=== PATIENT | male | born 1945 | race Caucasian/White ===

== ENCOUNTER → 2022-01-06 10:38 | Outpatient (BNVA) | payer OTHER, SELFPAY | PROVIDERS: PCP Nurse Practitioner; Visit Provider Internal Medicine Cardiovascular Disease | DX: I25.10 Atherosclerotic heart disease of native coronary artery without angina pectoris (principal); I10 Essential (primary) hypertension; E78.5 Hyperlipidemia, unspecified; R94.31 Abnormal electrocardiogram [ECG] [EKG]; Z87.891 Personal history of nicotine dependence | CPT/HCPCS: 93005; 99204 ==

== ENCOUNTER 2022-02-08 10:50 | Outpatient (CLI) | payer OTHER, SELFPAY ==
--- NOTE | 2022-02-08 11:15 | USCV_ITS ---
Buddy Martinez Age: 76 Gender: M : 1945 Exam Date: 02/08/2022 11:04 Ordering Phys: Zhao Lewis MD ([email or web address]) Technologist: FRANCO Exam Location: [facility] Indication: ABNORMAL EKG BP: 164 / 82 HR: 88 Rhythm: Sinus Technical Quality: Adequate MEASUREMENTS (Male / Female) Normal Values 2D ECHO LV Diastolic Diameter PLAX 5.2 cm 4.2 - 5.9 / 3.9 - 5.3 cm LV Systolic Diameter PLAX 3.0 cm IVS Diastolic Thickness 0.9 cm 0.6 - 1.0 / 0.6 - 0.9 cm IVS Systolic Thickness 1.5 cm LVPW Diastolic Thickness 0.9 cm 0.6 - 1.0 / 0.6 - 0.9 cm LVPW Systolic Thickness 1.6 cm LVOT Diameter 2.0 cm LV Ejection Fraction 2D Teich 72.0 % LV Ejection Fraction MOD 2C 64.6 % LV Ejection Fraction 2C AL 65.0 % LA Diameter 3.2 cm LA Width 3.6 cm LA Height 5.6 cm RA Width 3.8 cm RA Height 4.5 cm Aorta at Sinotubular Diameter 1.8 cm IVC Diameter 1.5 cm M-MODE Aortic Annulus Diameter 2.6 cm LA Ao Ratio MM 1.3 MV E Point Septal Separation 0.4 cm DOPPLER AV Peak Velocity 159.7 cm/s LVOT Peak Velocity 106.0 cm/s AV Area Cont Eq vti 2.1 cm squared AV Area Cont Eq pk 2.1 cm squared MV Peak Velocity 121.0 cm/s MV Area PHT 4.5 cm squared Mitral E to A Ratio 1.0 MV E' Velocity 52.5 cm/s Mitral E to MV E' Ratio 8.9 Mitral E to LV E' Lateral Ratio 8.2 Mitral E to LV E' Septal Ratio 10.0 TR Peak Velocity 215.4 cm/s TR Peak Gradient 18.6 mmHg TR Mean Velocity 161.2 cm/s TR Mean Gradient 11.2 mmHg TR Velocity Time Integral 52.4 cm TV Peak E Velocity 56.0 cm/s Right Atrial Pressure 3.0 mmHg Pulmonary Artery Systolic Pressu 21.6 mmHg PV Peak Velocity 99.0 cm/s RV Acceleration Time 0.1 s RV Ejection Time 0.3 s RV AcT/ET 0.4 FINDINGS Left Ventricle Normal left ventricular size and systolic function, EF 61 %. No regional wall motion abnormalities.Grade I/IV diastolic dysfunction (abnormal relaxation filling pattern), normal to mildly elevated filling pressures. Right Ventricle The right ventricle is normal in size and function. Right Atrium The right atrium is normal in size. Left Atrium The left atrium is normal in size. Mitral Valve No gross abnormalities noted Aortic Valve No gross abnormalities noted Tricuspid Valve Trace tricuspid valve regurgitation. Pulmonic Valve No gross abnormalities noted Pericardium Normal pericardium without effusion. Aorta Normal aortic annulus size. IVC Normal IVC dimension with >50% respiratory change of the inferior vena cava. CONCLUSIONS Normal left ventricular size and systolic function, EF 61 %. No regional wall motion abnormalities.Grade I/IV diastolic dysfunction (abnormal relaxation filling pattern), normal to mildly elevated filling pressures. Trace tricuspid valve regurgitation. There is no pericardial effusion. There are no intracardiac masses. No similar previous studies are available for comparison Dr Zhao Lewis MD [facility] (Electronically Signed) Final Date: 08 February 2022 18:42 S
== END 2022-02-08 10:51 | disposition home or self-care (01) ==
LOC: RAD 10:52
PROVIDERS: PCP Nurse Practitioner; Visit Provider Internal Medicine Cardiovascular Disease
DX: R06.00 Dyspnea, unspecified (principal); R94.31 Abnormal electrocardiogram [ECG] [EKG]
CPT/HCPCS: 93306

== ENCOUNTER 2022-11-22 08:06 | Outpatient (CLI) | payer OTHER, MEDICARE, SELFPAY ==
--- NOTE | 2022-11-22 08:23 | US_ITS ---
WS: [id number] RIGHT UPPER QUADRANT ULTRASOUND HISTORY: ELEVATED LIVER ENZYMES COMPARISON: None available. Technically very difficult and limited evaluation of the RIGHT upper quadrant due to body habitus. Liver: 18.5 cm in length. Moderately enlarged liver. Diffuse mild heterogeneity throughout the liver. No discrete mass identified. Portions of the liver are not well visualized due to attenuation. No bi le duct dilatation. Portal Vein: Normal hepatopetal flow with monophasic waveform. Gallbladder: Prior cholecystectomy. CBD: 0.4 cm Pancreas: Not visualized. Completely obscured by bowel gas. Right kidney: 10.3 cm in length. Normal size and echogenicity. No hydronephrosis or mass. Mild cortic al thinning. Aorta and IVC: Unremarkable abdominal aorta and IVC. No ascites. US/US abdomen limited [id number] IMPRESSION: 1. Technically difficult RIGHT upper quadrant ultrasound evaluation. 2. Prior cholecystectomy. 3. Moderate hepatic steatosis and hepatomegaly.
== END 2022-11-22 08:07 | disposition home or self-care (01) ==
LOC: RAD 08:17
PROVIDERS: PCP Nurse Practitioner; Visit Provider Nurse Practitioner
DX: R74.8 Abnormal levels of other serum enzymes (principal); K76.0 Fatty (change of) liver, not elsewhere classified
CPT/HCPCS: 76705

== ENCOUNTER → 2023-03-20 11:30 | Outpatient (BNVA) | payer OTHER, SELFPAY | PROVIDERS: PCP Nurse Practitioner; Visit Provider Internal Medicine Cardiovascular Disease | DX: I10 Essential (primary) hypertension (principal); E78.5 Hyperlipidemia, unspecified; I25.10 Atherosclerotic heart disease of native coronary artery without angina pectoris; Z87.891 Personal history of nicotine dependence | CPT/HCPCS: 99213 ==

== ENCOUNTER → 2024-03-27 13:39 | Outpatient (BNVA) | payer OTHER, BC, SELFPAY | PROVIDERS: PCP Nurse Practitioner; Visit Provider Internal Medicine Cardiovascular Disease | DX: I25.10 Atherosclerotic heart disease of native coronary artery without angina pectoris (principal); I10 Essential (primary) hypertension; E78.5 Hyperlipidemia, unspecified; Z87.891 Personal history of nicotine dependence | CPT/HCPCS: 99213 ==

== ENCOUNTER 2024-12-19 08:58 | Outpatient (CLI) | payer OTHER, SELFPAY ==
--- NOTE | 2024-12-19 09:00 | USR_ITS ---
PROCEDURE INFORMATION: Exam: US Bilateral Noninvasive Physiologic Study of the Lower Extremity Arteries, Limited Exam date and time: 12/19/2024 8:53 AM Age: 79 years old Clinical indication: Condition or disease; Peripheral vascular disease; Additional info: Peripheral vascular dz TECHNIQUE: Imaging protocol: Bilateral Limited bilateral noninvasive physiologic studies of lower extremity arteries. Waveforms were obtained and evaluated. Images were documented and archived. Exam is limited. COMPARISON: We will removal extremity. FINDINGS: Right Ankle-Brachial Index: 0.9 (193/199) Left Ankle-Brachial Index: 1.2 (207/171) US/CV ankle brachial index [id number] IMPRESSION: No evidence of stenosis or occlusion in the lower extremity.
== END 2024-12-19 08:59 | disposition home or self-care (01) ==
LOC: RAD 08:59
PROVIDERS: PCP Nurse Practitioner; Visit Provider Nurse Practitioner
DX: I73.9 Peripheral vascular disease, unspecified (principal)
CPT/HCPCS: 93922

== ENCOUNTER → 2025-03-24 14:43 | Outpatient (BNVA) | payer OTHER, SELFPAY | PROVIDERS: PCP Nurse Practitioner; Visit Provider Internal Medicine Cardiovascular Disease | DX: I25.10 Atherosclerotic heart disease of native coronary artery without angina pectoris (principal); I10 Essential (primary) hypertension; E78.2 Mixed hyperlipidemia; R94.31 Abnormal electrocardiogram [ECG] [EKG]; Z87.891 Personal history of nicotine dependence | CPT/HCPCS: 99214 ==

== ENCOUNTER 2025-06-17 10:49 | Emergency (ER) | payer OTHER, SELFPAY ==
[2025-06-17 10:53] VITALS: BP 157/65; PULSE 61; TEMP 36.4; O2SAT 96; BMI 33.5
--- NOTE | 2025-06-17 10:56 | XR_ITS ---
WS: [id number] Portable AP upright chest, 06/17/2025 Clinical Data: htn Comparison: None Findings: No nodules, masses or effusions are seen. The heart is normal. The pulmonary vascularity is not increased. No pneumonia or pneumothorax is seen. The diaphragms are flattened. XR/XR chest 1V portable [id number] Impression: Hyperinflation.
--- NOTE | 2025-06-17 10:56 | ECG_ITS ---
[facility] Test Date: 2025-06-17 Pat Name: Buddy Martinez Department: Room: Gender: Male [employer]: : 1945 Requested By: Beatriz Carlson Order Number: [id number] Joana MD: Zhao Lewis M.D. Measurements Intervals [place] Rate: 68 P: 68 [place]: 161 QRS: 47 QRSD: 72 T: 46 QT: 355 QTc: 379 Interpretive Statements SINUS RHYTHM WITH FREQUENT VENTRICULAR PREMATURE COMPLEXES IN A BIGEMINAL PATTERN POSSIBLE ANTERIOR MYOCARDIAL INFARCTION , OF INDETERMINATE AGE [30 ms Q WAVE IN V3/V4, OR R < 0.2 mV IN V4] No previous ECG available for comparison Electronically Signed On 06-17-2025 21:53:52 [employer]ORCH [employer] by Zhao Lewis M.D. [email or web address]
--- OUTSIDE RECORDS SUMMARY | 2025-06-17 11:19 | XMS_ITS | Encounter Summary ---
Author Organization [facility] Address [address] [place] [address] Care Team Providers Care Locker Room Supervisor Name Role Phone Mark Rivera MD Primary Care Provider [phone] Reason for Visit * Reason Comments Information Encounter Details Date Type Department Care Team (Late st Contact Info) Description 07/17/2024 Telephone [facility] [address] [place] [address] Libia Le, GITA [address] [place] [address] Information Social History Tobacco Use Types Packs/Day Years Used Date Smoking Tobacco: Former Cigarettes Q uit: 1998 Smokeless Tobacco: Never Alcohol Use Standard Drinks/Week Comments Not Currently 0 (1 standard drink = 0.6 oz pur e alcohol) Feeling Safe Answer Date Recorded Are you in a relationship wi th someone who hurts you emotionally and/or physically? No 04/13/2023 Food Insecurity Answer Date Recorded Social/Environmental Concerns No concerns Transportation Needs Answer Date Record ed Social/Environmental Concerns No concerns Housing Stability Answer Date Recorded Social/Environmental Concerns No concerns Utility Needs Answer Date Recorded Social/Environmental Concerns No concerns Sex and Gender Information Value Date Recorded Sex Assigned at Male 05/31/2024 9:03 AM CDT Legal Sex Male 4:44 PM CDT Gender Identity Male 05/31/2024 9:03 AM CDT Sexual Orientation Straight 05/31/2024 9: 03 AM CDT documented as of this encounter Miscellaneous Notes * Telephone Encounter - Arabella Washington - 07/17/2024 4:03 PM CST Copied from [facility] #[id number]. Topic: Patient or Caregiver Communication Request >> Jul 17, 2024 4:00 PM Arabella Burgess wrote: Patient or Caregiver requesting that a message be sent to Care Team Caller: Buddy Martinez Patient/Caregiver Callback Number: [phone] (home) Call Notes: Wanting to let clinic know that [facility] made him an appointment for 09/02/24. Patient just wanting Libia to be aware [facility] documented in this encounter Plan of Treatment Not on file documented as of this encounter Visit Diagnoses Not on filedocumented in this encounter Care Teams Locker Room Supervisor Relationship Specialty Start Date End Date Mark Rivera MD [address] [facility] [address] [place] [address] PCP - General Family Practice 04/08/23 documented as of this encounter
--- OUTSIDE RECORDS SUMMARY | 2025-06-17 11:19 | XMS_ITS | Clinical Summary ---
Author Organization [facility] Address [address] [address] Phone Care Team Providers Care Ski Base Trimmer Name Role Phone Mark Rivera MD Primary Care Provider [phone] Allergies Active Allergy Reactions Criticality Noted Date Comments Hymenoptera Allergenic Extract Anaphylaxis High 11/12 Levofloxacin Hives High 04/08/2023 Lovastatin Nausea and Vomiting Low 11/04/2021 Penicillins Anaphylaxis High 11/22/2021 Simvastatin Swelling Low 11/04/2021 Medications finasteride 5 mg tablet Take 5 mg by mouth daily. Active EPINEPHrine 0.1 mg/mL injection syringe Inject 1 mg by intravenous injection one time only. Active multivitamin oral liquid Take 5 mL by mouth daily. Active OMEGA-3 FATTY ACIDS-FISH OIL ORAL Take 1 Tablet by mouth 2 times daily. Active homeopathic drugs (SAMBUCUS ORAL) Take 1 Caplet by mouth daily. Active vitamin B complex (B COMPLEX-VITAMIN B12 ORAL) Take 1 Tablet by mouth daily. Active CALCIUM CARBONATE-VITAMI N D3 ORAL Take 1 Tablet by mouth every other day. Active ZINC ORAL Take 1 Tablet by mouth every other day. Active ascorbic acid (VITAMIN C ORAL) Take 1 Tablet by mouth every other day. Active L. acidophilus/L. rhamnosus (PROBIOTIC ORAL) Take 1 Caplet by mouth daily. Active losartan (COZAAR) 100 mg tablet Take 100 mg by mouth daily. 3 Active metoprolol succinate (TOPROL XL) 25 mg Extended Release 24 hour tablet Take 25 mg by mouth daily. Active hydrocortisone-i odoquinoL 1-1 % Cream in PacketIndication s:Pruritus Apply 1 Application to affected area daily. 30 Gram 2 3 Active pantoprazole (PROTONIX) 20 mg Tablet, Delayed Release (E.C.) Take 20 mg by mouth daily. Active amLODIPine (NORVASC) 5 mg tabletIndication s:Essential (primary) hypertension Take 1 Tablet (5 mg) by mouth daily. 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 Elevated liver enzymes 04/16/2023 Elevated LFTs 04/14/2023 Intrahepatic bile duct dilation 04/14/2023 History of cholecystectomy 04/14/2023 Jaundice, hepatocellular 04/14/2023 Claustrophobia 04/13/2023 Scleral icterus 04/13/2023 Hyperbilirubinemia 04/13/2023 Transaminitis 04/08/2023 Abdominal distension (gaseous) 04/08/2023 RUQ abdominal pain 04/08/2023 BENITO (acute kidney injury) 04/08/2023 Catheter-associated urinary tract infection 03/15 Atherosclerosis of mcgr[place] co ronary artery of m[place]grath heart without angina pectoris 12/01/2022 Overview (12/01/2022): Apr 09, 2019 Entered By: ANDRES JARAMILLO Comment: Hx Cath ~1991/no procedures/No ID Gastroesophageal reflux disease 12/01/2022 Hyperlipidemia 12/01/2022 Essential (primary) hypertension 12/01/2022 Benign prostatic hyperplasia without lower urinary tract symptoms 12/01/2022 Neurogenic bladder 12/01/2022 Overview (12/01/2022): Apr 09, 2019 Entered By: ANDRES JARAMILLO Comment: Hx of Retention of urine 12/01/2022 Steatosis of liver 12/01/2022 Overview (12/01/2022): Apr 09, 2019 Entered By: ANDRES JARAMILLO Comment: Per ct scan 05/12/15 Self-catheterizes urinary bladder 12/01/2022 Personal history of DVT (deep vein thrombosis) 0 12/01/2022 Immunizations Immunization Administration Dates Next Due (ADACEL/BOOSTRIX)(10 YR UP) TDAP VACCINE, 0.5ML, IM 09/14/2006 (PNEUMOVAX 23)(50 YRS UP) PN EUMOCOCCAL POLYSACCHARIDE (PPV23) 0.5 ML, IM 01/20/2014 (PREVNAR 13)(6 WKS UP) PNEUM OCOCCAL CONJUGATE (PCV13) 0.5 ML, IM 11/12/2016,01/18/2016 Influenza Seasonal Unspecifi ed Formulation IM 05/14/2019 Influenza Vaccine High Dose 65+ Yrs IM 9,05/31/2018,08/21/2017 Influenza, Unspecified Formulation 07/20,06/18/2015,08/05/2014,09/06,05/11/2012,06/07/2011,06/17/2010 ,06/23/2009,04/14/2009,06/11/2008,02/2007,06/15/2006,2005, 3 Pneumococcal vaccine, unspec ified formulation 2005 Td Vaccine >7 YO IM VFC 2016 Td(adult) Unspecified Formulation 09/14/2006 Social History Tobacco Use Types Packs/Day Years Used Date Smoking Tobacco: Former Cigarettes Q uit: 1997 Smokeless Tobacco: Never Tobacco Cessation:Counseling Given: No Alcohol Use Standard Drinks/Week Comments Not Currently [...] Orientation Straight 05/31/2024 9: 03 AM CDT Last Filed Vital Signs Vital Sign Reading Time Taken Comments Blood Pressure 138/64 11/29/2024 8:14 AM CDT Pulse 71 11/29/2024 8:08 AM CDT Temperature 36.2 C (97.1 F) 11/29/2024 8:08 AM CDT Respiratory Rate 18 11/29/2024 8:08 AM CDT Oxygen Saturation 97% 11/29/2024 8:08 AM CDT Inhaled Oxygen Concentration - - Weight 106.1 kg (234 lb) 11/29/2024 8:08 AM CDT Height 174 cm (5' 8.5 ) 11/29/2024 8:08 AM CDT Body Mass Index 35.06 11/29/2024 8:08 AM CDT Plan of Treatment Health Maintenance Due Date Last Done Comments DIABETES ANNUAL RETINAL EXAM 1963 ZOSTER VACCINE (1 of 2) 1997 RSV VACCINE (60+ or ) (1 - 1-dose 75+ series) 2022 DIABETES ANNUAL FOOT EXAM 02/10/2024 02/09/2023 [place] Preventative Visit/Annual Wellness Visit 08/14/2024 05/14/2024, 02/12/2024, 02/09/2023 INFLUENZA VACCINE (#1) 2025 9, 05/14/2019, 05/31/2018, Additional history exists DIABETES HBA1C Q 6 MONTHS 05/14/20252024, 05/14/2024, 12/11/2023 DIABETES MICROALBUMIN ANNUAL SCREEN 11/12/2025 11/12/2024, 05/14/2024, 12/18/2023 DIABETES: A1C (Auto Order) 11/12/202511/12, 05/14/2024, 12/11/2023 LDL CHOLESTEROL ANNUAL 11/12/2025 , 05/14/2024, 12/11/2023 DTAP/TDAP/TD VACCINES (4 - T d or Tdap) 2026 2016, 09/14/2006, 09/14/2006 PNEUMOCOCCAL VACCINE 50+ YEARS Completed 0 11/12/2016, 01/18/2016, 01/20/2014, Additional history exists Colorectal Cancer Screening Discontinued FIT-DNA Q 3 years Discontinued 05/15/2023 [facility] uACR (Auto Order) Completed 11/12/2024 , 05/14/2024, 12/18/2023 [facility] eGFR (Auto Order) Completed 11/29/2024 , 11/12/2024, 05/14/2024, Additional history exists COLORECTAL SCREENING Discontinued FIT/FOBT Q 1 year Discontinued Flex Sig/CT Colonography Q 5 years Discontinued Procedures Procedure Name Priority Date/Time Associated Diagnosis Comments COMPREHENSIVE METABOLIC PANEL Routine 11/29/2024 8:35 AM CDT Urinary pain Urinary tract infection without hematuria, site unspecified MICROALBUMIN/CREATINI NE RATIO, RANDOM UR Routine 11/12/2024 9:28 AM CDT Essential (primary) hypertension LIPID PANEL Routine 11/12/2024 9:28 AM CDT Essential (primary) hypertension HEMOGLOBIN A1C Routine 11/12/2024 9:28 AM CDT Type 2 diabetes mellitus with other circulatory complication, without long-term current use of insulin ([facility]) COLON CANCER SCREEN, STOOL DNA Routine 05/15/2023 3:30 PM CDT Encounter for routine adult health examination without abnormal findings from Last 3 Months or Most Recently Relevant to Health Maintenance Results * (ABNORMAL) COMPREHENSIVE METABOLIC PANEL (11/29/2024 8:35 AM CDT) GLUCOSE 199(H) 65 - 99 mg/dL [facility] Comment: Fasting reference interval For someone without known diabetes, a glucose value >125 mg/dL indicates that they may have diabetes and this should be confirmed with a follow-up test. BUN 20 7 - 25 mg/dL [facility] CREATININE 1.18 0.70 - 1.28 mg/dL [facility] EGFR 64 > OR = 60 mL/min/1. 73m2 [facility] BUN/CREAT RATIO SEE NOTE: 6 - 22 (calc) [facility] Comment: Not Reported: BUN and Creatinine are within reference range. SODIUM 133(L) 135 - 146 mmol/L [facility] POTASSIUM 5.1 3.5 - 5.3 mmol/L [facility] CHLORIDE 97(L) 98 - 110 mmol/L [facility] CO2 31 20 - 32 mmol/L [facility] CALCIUM 9.4 8.6 - 10.3 mg/dL [facility] TOTAL PROTEIN 6.8 6.1 - 8.1 g/dL [facility] ALBUMIN 4.3 3.6 - 5.1 g/dL [facility] GLOBULIN 2.5 1.9 - 3.7 g/dL (calc) [facility] ALBUMIN/GLOBULIN RATIO 1.7 1.0 - 2.5 (calc) [facility] BILIRUBIN TOTAL 0.5 0.2 - 1.2 mg/dL [facility] ALKALINE PHOSPHATASE 60 35 - 144 U/L [facility] AST 32 10 - 35 U/L [facility] ALT 35 9 - 46 U/L [facility] Comment: Test Performed at: [facility] [address] [place] [address] Donte Hernández MD Blood 11/29/2024 8:35 AM CDT 11/30/2024 4:12 AM CDT us Libia Le MEDICAL TRANSCRIBER CHEMISTRY ORDERABLES Final Res ult [facility] [phone] [facility] [address] [place] [address] * MICROALBUMIN/CREATININE RATIO, RANDOM UR (11/12/2024 9:28 AM CDT) Creatinine, Urine 99 20 - 320 mg/dL [facility] MICROALBUMIN, URINE 0.2 See Note: mg/dL [facility] Comment: Reference Range: Reference Range Not established MICROALBUMIN/CREAT RATIO, UR 2 <30 mg/g creat [facility] Comment: The ADA defines abnormalities in albumin excretion as follows: Albuminuria Category Result (mg/g creatinine) Normal to Mildly increased <30 Moderately increased 30-299 Severely increased > OR = 300 The ADA recommends that at least two of three specimens collected within a 3-6 month period be abnormal before considering a patient to be within a diagnostic category. Test Performed at: [facility] [address] [facility] [place] [address] Donte Hernández MD Urine URINE SPECIMEN OBTAINED BY CLEAN CATCH PROCEDURE / Unknown 11/12/2024 9:28 AM CDT 11/13/2024 5:06 AM CDT us Libia [place] MEDICAL TRANSCRIBER URINE ORDERABLES Final Result [facility] [phone] [facility] [address] [place] [id number] * (ABNORMAL) HEMOGLOBIN A1C (11/12/2024 9:28 AM CDT) HEMOGLOBIN A1C 6.8(H) <5.7 % of total Hgb [facility] Comment: For someone without known diabetes, a hemoglobin A1c value of 6.5% or greater indicates that they may have diabetes and this should be confirmed with a follow-up test. For someone with known diabetes, a value <7% indicates that their diabetes is well controlled and a value greater than or equal to 7% indicates suboptimal control. A1c targets should be individualized based on duration of diabetes, age, comorbid conditions, and other considerations. Currently, no consensus exists regarding use of hemoglobin A1c for diagnosis of diabetes for children. ESTIMATED AVERAGE GLUCOSE (MG/DL) 148 mg/dL [facility] ESTIMATED AVERAGE GLUCOSE (MMOL/L) 8.2 mmol/L [facility] Comment: Test Performed at: [facility] [id number] [facility] [place] [address] Donte Hernández MD Blood 11/12/2024 9:28 AM CDT 11/13/2024 4:21 AM CDT us Libia [place] MEDICAL TRANSCRIBER CHEMISTRY ORDERABLES Final Res ult Performing Organization Address City/[facility]/ZIP Co de Phone Number [facility] [phone] [facility] [address] [address] [place] [address] * (ABNORMAL) LIPID PANEL (11/12/2024 9:28 AM CDT) CHOLESTEROL 175 <200 mg/dL [facility] HDL 46 > OR = 40 mg/dL [facility] TRIGLYCERIDE 239(H) <150 mg/dL [facility] Comment: If a non-fasting specimen was collected, consider repeat triglyceride testing on a fasting specimen if clinically indicated. Levi et al. J. of Clin. Lipidol. 2015;9:129-169. LDL CALCULATED 96 mg/dL (calc) [facility] Comment: Reference range: <100 Desirable range <100 mg/dL for primary prevention; <70 mg/dL for patients with CHD or diabetic patients with > or = 2 CHD risk factors. LDL-C is now calculated using the Saleem-Malin calculation, which is a validated novel method providing better accuracy than the Friedewald equation in the estimation of LDL-C. Saleem SS et al. RADHA. 2013;310(19): 2516-8336 (http://education.OwnerListens/faq/SXR164) CHOL/HDL RATIO 3.8 <5.0 (calc) [facility] NON-HDL CHOLESTEROL 129 <130 mg/dL (calc) [facility] Comment: For patients with diabetes plus 1 major ASCVD risk factor, treating to a non-HDL-C goal of <100 mg/dL (LDL-C of <70 mg/dL) is considered a therapeutic option. Test Performed at: [facility] [address] [place] [address] Donte Hernández MD Blood 11/12/2024 9:28 AM CDT 11/13/2024 4:21 AM CDT us Libia Le NP CHEMISTRY ORDERABLES Final Res ult [facility] [phone] [facility] [address] [place] [address] * COLON CANCER SCREEN, STOOL DNA (05/15/2023 3:30 PM CDT) COLOGUARD RESULT Negative Negative [facility] Comment: NEGATIVE TEST RESULT. A negative Cologuard result indicates a low likelihood that a colorectal cancer (CRC) or advanced adenoma (adenomatous polyps with more advanced pre-malignant features) is present. The chance that a person with a negative Cologuard test has a colorectal cancer is less than 1 in 1500 (negative predictive value >99.9%) or has an advanced adenoma is less than 5.3% (negative predictive value 94.7%). These data are based on a prospective cross-sectional study of 10,000 individuals at average risk for colorectal cancer who were screened with both Cologuard and colonoscopy. (Evie Sage et al, N Engl J Med 2014;370(14):4072-8096) The normal value (reference range) for this assay is negative. COLOGUARD RE-SCREENING RECOMMENDATION: Periodic colorectal cancer screening is an important part of preventive healthcare for asymptomatic individuals at average risk for colorectal cancer. Following a negative Cologuard result, the [place] Cancer Society and U.S. Multi-Society Task Force screening guidelines recommend a Cologuard re-screening interval of 3 years. References: [place] [employer] Society Guideline for Colorectal Cancer Screening: https://www.cancer.org/cancer/trrdm-idvgyl-tvfrue/ezxbksbba-soswnqdkt-kwupvpd/ac s-rec ommendations.html.; Bryce DK, Deshawn CR, Kathy CarranzaK, Colorectal Cancer Screening: Recommendations for Physicians and Patients from the U.S. Multi-Society Task Force on Colorectal Cancer Screening , Am J Gastroenterology 2017; 112:6331-1942. TEST DESCRIPTION: Composite algorithmic analysis of stool DNA-biomarkers with hemoglobin immunoassay. Quantitative values of individual biomarkers are not reportable and are not associated with individual biomarker result reference ranges. Cologuard is intended for colorectal cancer screening of adults of either sex, 45 years or older, who are at average-risk for colorectal cancer (CRC). Cologuard has been approved for use by the U.S. FDA. The performance of Cologuard was established in a cross sectional study of average-risk adults aged 50-84. Cologuard performance in patients ages 45 to 49 years was estimated by sub-group analysis of near-age groups. Colonoscopies performed for a positive result may find as the most clinically significant lesion: colorectal cancer [4.0%], advanced adenoma (including sessile serrated polyps greater than or equal to 1cm diameter) [20%] or non- advanced adenoma [31%]; or no colorectal neoplasia [45%]. These estimates are derived from a prospective cross-sectional screening study of 10,000 individuals at average risk for colorectal cancer who were screened with both Cologuard and colonoscopy. (Evie Diego. et al, N Engl J Med 2014;370(14):8270-6399.) Cologuard may produce a false negative or false positive result (no colorectal cancer or precancerous polyp present at colonoscopy follow up). A negative Cologuard test result does not guarantee the absence of CRC or advanced adenoma (pre-cancer). The current Cologuard screening interval is every 3 years. ([place] Cancer Society and U.S. Multi-Society Task Force). Cologuard performance data in a 10,000 patient pivotal study using colonoscopy as the reference method can be accessed at the following location: www.Zazzle/results. Additional description of the Cologuard test process, warnings and precautions can be found at www.cologuard.com. Stool STOOL SPECIMEN / Unknown 05/15/2023 3:30 PM CDT 05/17/2023 4:01 AM CDT us Zaina Lambert BALL MILL OPERATOR BODY FLUIDS AND STOOLS Christine fong Result [facility] CLIA # [id number] [address], [address] [place] [address] from Last 3 Months or Most Recently Relevant to Health Maintenance Insurance MEDICAID [facility] MEDICARE HMO [place] [employer] Advance Directives For more information, please contact: [phone] * NO CPR (In Event of Cardiopulmonary Arrest) (Latest Code Status on File) Date Activated Date Inactivated Comments 04/13/2023 8:12 PM 04/16/2023 4:22 PM Question Answer Comments Mechanical Ventilation (for respiratory distress) - Invasive (i.e. intubation): No Mechanical Ventilation (for respiratory distress) - Non-Invasive (i.e. BiPAP, CPAP): No * Default Full Code - Needs Discussion Date Activated Date Inactivated Comments 04/13/2023 7:13 PM 04/13/2023 8:11 PM Care Teams Ski Base Trimmer Relationship Specialty Start Date End Date Mark Rivera MD [address] [address] PCP - General Family Practice 04/08/23
--- OUTSIDE RECORDS SUMMARY | 2025-06-17 11:19 | XMS_ITS | Patient Health Record ---
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 Name Role Phone Trevor Velásquez [phone] Allergies Allergen (clinical drug ingredient) Drug/Non Drug Allergy documented on EMR Reaction Allergy Type Onset Date Status atorvastatin Atorvastatin Unknown Drug Allergy A ctive doxycycline Doxycycline Unknown Drug Allergy Act augustus Penicillin Unknown Drug Allergy Active Reason For Referral No Information Medications Medication SIG (Take, Route, Fr equency, Duration) Notes Start Date End Date Status [place] 3 Active Ascorbic Acid Active Polyethylene Glycol Active Finasteride Active Multivitamin Active B Complex (Folic Acid) Active Losartan Potassium A ctive Docusate Sodium Acti ve Metoprolol Succinate Active Senna Active oxyCODONE HCl Active Pantoprazole Sodium Active Cholecalciferol Acti ve Social History Tobacco Use: Social History Observation Description Date Details (start date - stop date) Never Smoker NA - NA Sex Assigned At : Social History Observation Description Sex Assigned At Male Social History Drugs: Social Info Question Answer Notes Drugs: Current or past use of IV or Recreational Drugs: Former Alcohol: Social Info Question Answer Notes Alcohol Current or past use of alcohol: Former Tobacco Use: Social Info Question Answer Notes Tobacco Control (Standard) Tobacco use: Nonsmoker . Are you a: former smoker Problems Problem Type SNOMED Code ICD Code Onset Dates Problem Status W/U Status Risk Notes Problem Gastroesophageal reflux disease (disorder) (584617513) Chronic GERD (K21.9) Active confirmed Plan Of Treatment No Information Insurance Providers Payer Name Payer Address Payer Phone Subscriber Number Group Number Insured Name Patient Relationship to Insured Coverage Start Date Coverage End Date [employer] [facility] PPO [id number] [address] [address] [place], [place] [id number] STEPHEN MAN Self - patient is the insured 3 [facility] [id number] [address] [address] [place] [address] [id number] STEPHEN MAN Self - patient is the insured 4 Medical (General) History Medical History History ICD Code Gerd Hyperlipidemia HTN pancreatitis Surgical History Surgery Date(Month/Year) Inguinal hernia repairs x 3 Colonoscopy ERCP Cholecystectomy
--- NOTE | 2025-06-17 11:24 | W.ED.GENADLT ---
HPI - General Adult General: Chief complaint: General Medical Stated complaint: High bp Time Seen by Provider: 06/17/25 11:14 History of Present Illness: 79-year-old man with a history of hypertension, hyperlipidemia and coronary artery disease who presents emergency room with hypertension. He says his blood pressure has been quite erratic lately. He says he was taken off of carvedilol recently. He follows with Dr. Lewis in cardiology clinic. Most recent visit was March of this year. He does not have any specific complaints but says he checked his blood pressure and it was elevated. He is extremely anxious and will not stay in her room and says he is very claustrophobic. I do talk him into sitting in the waiting room long enough for me to evaluate his lab work and chest x-ray and EKG. He cannot tell me any specific complaints. No palpitations. No chest pain. No headache. No altered mental status. Related Data Home Medications ?Medication ?Instructions ?Recorded ?Confirmed carboxymethylcellulose sodium 1 % 1 drp ophthalmic (eye) BID 12/29/21 03/27/24 eye drops (Artificial Tears (carboxymethylcellulose)) cyanocobalamin (vitamin B-12) 1,000 mcg PO DAILY 12/29/21 03/27/24 1,000 mcg capsule finasteride 5 mg tablet 5 mg PO DAILY 12/29/21 03/27/24 multivitamin 1 tab PO DAILY 12/29/21 03/27/24 omega 4-dhp-mmu-fish oil 1,000 mg 1 cap PO DAILY 12/29/21 03/27/24 (120 mg-180 mg) capsule (Fish Oil) vitamin B complex 1 cap PO DAILY 12/29/21 03/27/24 pantoprazole 40 mg tablet,delayed 40 mg PO DAILY 03/27/24 03/27/24 release amlodipine 5 mg tablet 5 mg PO DAILY 03/24/25 Previous Rx's ?Medication ?Instructions ?Recorded losartan 100 mg tablet 100 mg PO DAILY 30 days #30 tabs 01/06/22 carvedilol 25 mg tablet 25 mg PO BID 90 days #180 tabs 03/24/25 carvedilol 12.5 mg tablet 12.5 mg PO BID #180 tabs 06/17/25 Allergies Allergy/AdvReac Type Severity Reaction Status Date / Time bee venom protein (honey bee) Allergy Unknown Verified 06/17/25 11:01 levofloxacin (From Levaquin) Allergy Unknown Verified 06/17/25 11:01 lovastatin Allergy Unknown Verified 06/17/25 11:01 Penicillins Allergy Unknown Verified 06/17/25 11:01 simvastatin Allergy Unknown Verified 06/17/25 11:01 Review of Systems Narrative: Constitutional symptoms: Negative except as documented in HPI. Skin symptoms: Negative except as documented in HPI. Eye symptoms: Negative except as documented in HPI. ENMT symptoms: Negative except as documented in HPI. Respiratory symptoms: Negative except as documented in HPI. Cardiovascular symptoms: Negative except as documented in HPI. Gastrointestinal symptoms: Negative except as documented in HPI. Genitourinary symptoms: Negative except as documented in HPI. Musculoskeletal symptoms: Negative except as documented in HPI. Neurologic symptoms: Negative except as documented in HPI. Psychiatric symptoms: Negative except as documented in HPI. Endocrine symptoms: Negative except as documented in HPI. PFSH ED PFSH: Medical History (Updated 06/17/25 @ 12:26 by Beatriz Roman MD) Tinnitus Fatty liver BPH (benign prostatic hyperplasia) Obesity Claustrophobia GERD (gastroesophageal reflux disease) Venous thromboembolism Neurogenic bladder Diabetes CAD (coronary artery disease) Peripheral venous insufficiency Former smoker Tricuspid regurgitation Atherosclerosis of coronary artery of [place] heart without angina pectoris, unspecified vessel or lesion type Mixed hyperlipidemia Essential hypertension Surgical History Hx of cholecystectomy Hx of inguinal hernia repair bilat Family History Mother CAD (coronary artery disease), Onset Age: 30 PPM, hx of rhuematic fever Stroke Brain aneurysm Brother CAD (coronary artery disease), Onset Age: 49 stents, MS Lung disease hystoplasmosis Father Cancer Chronic kidney disease (CKD) Family/Other Dementia Denies family history of Diabetes Clotting disorder Suicide Anesthesia complication Bleeding disorder Social History Smoking and tobacco/nicotine status: former use of tobacco/nicotine Alcohol intake: never Substance/Drug Use: never Physical Exam Narrative: EXAM NARRATIVE: General: Alert, no acute distress. Skin: Warm, dry. Head: Normocephalic, atraumatic. Neck: Supple, trachea midline. Eye: Extraocular movements are intact. Ears, nose, mouth and throat: mucosa moist. Cardiovascular: Regular, Normal peripheral perfusion. Respiratory: Lungs are clear to auscultation, respirations are non-labored, breath sounds are equal, Symmetrical chest wall expansion. Gastrointestinal: Soft, Nontender, Non distended Musculoskeletal: Normal ROM, no deformity. Neurological: Alert and oriented, No focal neurological deficit observed. Psychiatric: Cooperative, patient is extremely anxious Course Vital Signs: Vital signs: Vital Signs Temperature 97.6 F 06/17/25 10:53 Pulse Rate 61 06/17/25 10:53 Blood Pressure 157/65 06/17/25 10:53 Pulse Oximetry 96 06/17/25 10:53 Oxygen Delivery Me thod Room Air 06/17/25 10:53 MDM - General Adult Medical Decision Making Medical decision making: Patient's reason for coming to the emergency room hypertension Social determinants: Retired. I reviewed the patient's medical record. 79-year-old man with a history of hypertension, hyperlipidemia and coronary artery disease . Patient had no complaints at his last visit in March to cardiology. I reviewed the patient's current home meds Patient has amlodipine, carvedilol and losartan listed in his med list. He says he is not taking carvedilol currently. Alternate historians: A family member is present and does provide some history as well Differential diagnosis for patient with chest pain includes but is not limited to and based on the above HPI, review of systems and physical exam: Pneumonia. unstable angina. angina. Acute coronary syndrome / MS. Pulmonary embolism. Costochondritis / musculoskeletal. Pleurisy. Pericarditis. Esophageal spasm. Pancreatitis. Cholecystitis. Orders placed to evaluate differential diagnosis based on the above differential, HPI and physical exam EKG: Time 11:04 AM. Rate 68. Normal sinus rhythm, No ST-T changes, bigeminy/PVCs, normal MN & QRS intervals, This was reviewed and interpreted by myself the ER physician at 11:08 AM Chest x-ray: No acute process. No infiltrate. No pneumothorax. This was reviewed and interpreted by myself the emergency room physician. I also reviewed the radiology report. Lab Review: Laboratory results were reviewed and interpreted by myself the emergency room physician. No leukocytosis. No anemia. No renal failure. Troponin is negative. proBNP is mildly elevated at 587. Assessment of risk: Level of risk: Moderate Hospitalization considerations: Hospitalization would be considered but patient absolutely would not come in with his claustrophobia issues. Reexamination: Patient remained stable. No increased work of breathing. No altered mental status. No focal motor deficits. Consultation: I spoke with Dr. 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 He recommends a lower dose of carvedilol 12.5 twice daily. And prompt follow-up in clinic. Assessment and plan: Hypertension Bigeminy - Discharged home - Discussed plan with patient. Answered any questions. - Evaluation and treatment of this problem were appropriate in the emergency setting. Lab Data 06/17/25 11:17 06/17/25 11:17 Radiology Impressions Chest X-Ray 06/17/25 10:56 Impression: Hyperinflation. Laboratory Results WBC 9.03 10^3/uL (3.29-11.43) 06/17/25 11:17 RBC 5.59 10^6/uL (3.85-5.65) 06/17/25 11:17 Hgb 15.40 g/dL (11.27-16.99) 06/17/25 11:17 Hct 48.4 % (37-53) 06/17/25 11:17 MCV 86.6 fl (82-101) 06/17/25 11:17 MCH 27.5 pg (27-33) 06/17/25 11:17 MCHC 31.8 g/dL (30-55) 06/17/25 11:17 RDW 12.2 % (12.1-15.1) 06/17/25 11:17 Plt Count 246 10^3/cmm (157-399) 06/17/25 11:17 MPV 11.0 fL (7.4-10.4) H 06/17/25 11:17 Neut % (Auto) 57.6 % 06/17/25 11:17 Lymph % (Auto) 28.2 % 06/17/25 11:17 [place] % (Auto) 12.3 % 06/17/25 11:17 Eos % (Auto) 1.4 % 06/17/25 11:17 Baso % (Auto) 0.4 % 06/17/25 11:17 Neut # (Auto) 5.19 10^3/uL (1.8-7.7) 06/17/25 11:17 Lymph # (Auto) 2.6 10^3/uL (0.8-4.8) 06/17/25 11:17 [place] # (Auto) 1.1 10^3/uL (0.2-0.9) H 06/17/25 11:17 Eos # (Auto) 0.1 10^3/uL (0.0-0.8) 06/17/25 11:17 Baso # (Auto) 0.0 10^3/uL (0.0-0.1) 06/17/25 11:17 Nucleated RBC % (auto) 0 % 06/17/25 11:17 Nucleated RBCs # 0.0 /100WBC 06/17/25 11:17 Sodium 137 mmol/L (136-145) 06/17/25 11:17 Potassium 4.7 mmol/L (3.5-5.1) 06/17/25 11:17 Chloride 100 mmol/L (98-107) 06/17/25 11:17 Carbon Dioxide 28 mmol/L (22-29) 06/17/25 11:17 Anion Gap 13.7 (5-19) 06/17/25 11:17 BUN 16 mg/dL (8-23) 06/17/25 11:17 Creatinine 0.8 mg/dL (0.7-1.2) 06/17/25 11:17 GFR Calculation Not Reportable 06/17/25 11:17 Glucose 134 mg/dL (65-115) H 06/17/25 11:17 Calculated Osmolality 287 mOsm/kg (285-295) 06/17/25 11:17 Calcium 9.9 mg/dL (8.5-10.5) 06/17/25 11:17 Total Bilirubin 0.7 mg/dL (0.15-1.2) 06/17/25 11:17 AST 23 U/L (0-40) 06/17/25 11:17 ALT 20 U/L (0-41) 06/17/25 11:17 Alkaline Phosphatase 77 U/L (40-130) 06/17/25 11:17 Troponin T Baseline 13 ng/L (0-15) 06/17/25 11:17 NT-Pro-B Natriuret Pep 587 pg/mL (0-450) H 06/17/25 11:17 Total Protein 7.4 g/dL (6.6-8.7) 06/17/25 11:17 Albumin 4.7 g/dL (3.5-5.2) 06/17/25 11:17 Globulin 2.7 g/dL (1.3-4.6) 06/17/25 11:17 All radiology interpretation(s) finalized by discharge Discharge Plan Discharge Patient Disposition: Home Clinical Impression: Essential hypertension, Bigeminy Condition: Stable Prescriptions: New carvedilol 12.5 mg tablet 12.5 mg PO BID Qty: 180 1RF Rx Instructions: must administer with a meal/food No Action pantoprazole 40 mg tablet,delayed release (DR/EC) 40 mg PO DAILY amlodipine 5 mg tablet 5 mg PO DAILY carvedilol 25 mg tablet 25 mg PO BID 90 Days Qty: 180 3RF Rx Instructions: must administer with a meal/food Artificial Tears (cmc) 1 % drops 1 drp ophthalmic (eye) BID cyanocobalamin (vitamin B-12) 1,000 mcg capsule 1,000 mcg PO DAILY finasteride 5 mg tablet 5 mg PO DAILY omega 5-vsp-htf-fish oil [Fish Oil] 1,000 mg (120 mg-180 mg) capsule 1 cap PO DAILY multivitamin Tablet 1 tab PO DAILY vitamin B complex Capsule 1 cap PO DAILY losartan 100 mg tablet 100 mg PO DAILY 30 Days Qty: 30 5RF Discharge Orders: Discharge ED (Routine); Ordered 06/17/25 Ordered By: Beatriz Roman Referrals: Chaya Pressley FNP [Primary Care Provider, Nurse Practitioner] Discharge Diet: Usual diet Discharge Activity: Increase activity as tolerated Patient Instructions: Opioid Safety, Pain Management, Patient Portal & Adriana Instructions Activity Restrictions/Additional Instructions: Please start carvedilol at the lower dose that I prescribed for you today. Please call Dr. Lewis's office for follow-up JODEE. I spoke with him today. Thank you for choosing [facility] for your healthcare needs today. You have been screened and evaluated and felt safe for discharge. Health conditions do change or evolve sometimes and as such it is important that you follow up with your Primary Doctor to be re checked, 3-5 days is a general good time frame for follow up. You are always welcome to return to the ED for re assessment if your symptoms are worsening or you have new concerns Print Language: Prydeinig Coding Level of Care Code ED [employer]case Assembler for Marquis Lance
[2025-06-17 11:38] LABS: Hematocrit 48.4 % (37-53); Hemoglobin 15.40 g/dL (11.27-16.99); Mean Corpuscular HGB Conc 31.8 g/dL (30-55); Mean Corpuscular Hemoglobin 27.5 pg (27-33); Mean Corpuscular Volume 86.6 fl (82-101); Nucleated Red Blood Cells % 0 %; Platelet Count 246 10^3/cmm (157-399); Red Blood Count 5.59 10^6/uL (3.85-5.65); White Blood Count 9.03 10^3/uL (3.29-11.43)
[2025-06-17 12:06] LABS: Troponin(5th) Baseline 13 ng/L (0-15)
[2025-06-17 12:16] LABS: Alanine Aminotransferase 20 U/L (0-41); Albumin Level 4.7 g/dL (3.5-5.2); Alkaline Phosphatase 77 U/L (40-130); Anion Gap 13.7 (5-19); Aspartate Amino Transferase 23 U/L (0-40); Blood Urea Nitrogen 16 mg/dL (8-23); Calcium 9.9 mg/dL (8.5-10.5); Carbon Dioxide 28 mmol/L (22-29); Chloride 100 mmol/L (98-107); Creatinine Clr Calc Pharmacy 88.7443; Globulin 2.7 g/dL (1.3-4.6); Glucose 134 mg/dL (65-115); NT Pro B Type Natriuretic Pept 587 pg/mL (0-450); Osmolality Calculated 287 mOsm/kg (285-295); Potassium 4.7 mmol/L (3.5-5.1); Sodium 137 mmol/L (136-145); Total Protein 7.4 g/dL (6.6-8.7)
--- NOTE | 2025-06-17 12:32 | PC.NURSE ---
PT SEVERELY CLAUSTROPHOBIC, PT REQUESTED TO REMAIN IN WAITING ROOM UNTIL LAB RESULTS BACK. DR. EMERSON AYALA'D PT TO WAIT IN WAITING ROOM.
== END 2025-06-17 13:03 | disposition home or self-care (01) ==
PROVIDERS: Emergency Provider Emergency Medicine; PCP Nurse Practitioner
DX: I10 Essential (primary) hypertension (principal); R00.8 Other abnormalities of heart beat; Z87.891 Personal history of nicotine dependence; E78.2 Mixed hyperlipidemia; E11.9 Type 2 diabetes mellitus without complications; I25.10 Atherosclerotic heart disease of native coronary artery without angina pectoris
CPT/HCPCS: 36415; 71045; 80053; 83880; 84484; 85025; 93005; 99285